=== PATIENT | male | born 1970 | race Caucasian/White ===

== ENCOUNTER 2016-12-08 13:17 | Inpatient (IN) ==
--- NOTE | 2016-12-05 20:40 | Discharge Summary ---
<DaylinDiane L - Last Filed: 12/07/16 21:12> - Discharge Diagnosis (1) Arthritis of left hip Priority: Primary Status: Acute (2) Tobacco use Priority: Secondary Status: Chronic - Discharge Medications Home Medications: Omeprazole [PriLOSEC] 20 mg PO DAILY 06/19/16 [History] Aspirin Enteric Coated [Aspirin EC] 325 mg PO DAILY #21 tablet. 12/07/16 [Rx] OxyCODONE Immed Rel [Roxicodone 5 MG] 5 - 10 mg PO Q6HR PRN #40 tablet 12/07/16 [Rx] Allergies/Adverse Reactions: Allergies codeine Allergy (Verified 12/09/16 20:07) Swelling of Lip/Tongue/Throat Pt states ok with taking Morphine. Oxycodone Allergy (Verified 12/08/16 19:04) Swelling of Lip/Tongue/Throat Primary care physician: PCP NO - Patient Status Disposition: Home, Self-Care Condition: Good - Discharge Instructions Follow Up With: NO,PCP [Primary Care Provider] - - Hospital Course Hospital course: Mr. Arambula is a 46 year old male - Time Spent with Patient Total time spent providing and/or coordinating discharge services: <Dylan Christensen - Last Filed: 12/10/16 06:55> Date of Encounter: 12/10/16 Time of Encounter: 06:55 - Discharge Diagnosis (1) Arthritis of left hip Priority: Primary Status: Acute (2) Tobacco use Priority: Secondary Status: Chronic Primary care physician: PCP NO - Patient Status Functional capacity at discharge: uses cane/walker Overall status at discharge: patient is progressing back to baseline - Hospital Course Hospital course: Mr. Arambula is a 46 year old male The patient had an uneventful postoperative course. They received antibiotics and physical therapy and were discharged in stable condition. There will follow -up in the office in 2 weeks. - Time Spent with Patient Total time spent providing and/or coordinating discharge services:
--- NOTE | 2016-12-08 13:35 | History & Physical Report ---
Date of Encounter: 12/08/16 Time of Encounter: 13:35 24 Hour HP Update - Instructions Instructions: If the History and Physical is less than 30 days old and was completed prior to A.M. admission and or procedure and has NOT been updated on calendar day of procedure please complete this update prior to performing procedure. - Update Patient reports changes in Medical Condition: No Changes in assessment/condition: No Changes in Medication: No Preop tests/diagnostics Reviewed: Yes Surgery Remains Indicated: Yes Consent for Planned Operative Procedure(s) Verified: Yes - Pre-Operative Checklist Preoperative Checklist Indicated: No Prophylactic Antibiotic Ordered: Yes Is VTE Prophylaxis Indicated?: Yes
[2016-12-08] MEDS ORDERED: CeFAZolin Pre 2,000 MG/100 ML 2,000 MG/100 ML BAG IVPB ONE (13:39)
[2016-12-08] MEDS ORDERED: Albuterol 2.5 MG/3 ML NEBULIZER IH ONE (13:46)
[2016-12-08] MEDS: Ringers Solution, Lactated 1,000 ML IVC SCH ×2 (14:01→16:15)
[2016-12-08] MEDS ORDERED: *HR* Propofol 200 MG/20 ML VIAL IVP ONE (14:20)
[2016-12-08] MEDS ORDERED: *HR* Succinylcholine 200 MG/10 ML VIAL IVP ONE (14:20)
[2016-12-08] MEDS ORDERED: Dexamethasone 4 MG/ML VIAL ONE (14:20)
[2016-12-08] MEDS ORDERED: Ondansetron 4 MG/2 ML VIAL ONE (14:20)
[2016-12-08] MEDS ORDERED: Ketorolac 30 MG/ML VIAL ONE (14:20)
[2016-12-08] MEDS ORDERED: *HR* Midazolam HCl 2 MG/2 ML VIAL ONE (14:20)
[2016-12-08] MEDS ORDERED: *HR* Rocuronium Bromide 50 MG/5 ML VIAL ONE (14:20)
[2016-12-08] MEDS ORDERED: Lidocaine -MPF 2% 2 ML VIAL ONE (14:20)
[2016-12-08] MEDS ORDERED: Lidocaine -MPF 4% 5 ML AMPUL ONE (14:20)
[2016-12-08] MEDS ORDERED: *HR* FentaNYL (PF) 100 MCG/2 ML VIAL ONE ×2 (14:20→15:23)
[2016-12-08] MEDS ORDERED: *HR* Promethazine 25 MG/ML VIAL IVP PRN (14:25)
[2016-12-08] MEDS ORDERED: Ondansetron 4 MG/2 ML VIAL IVP ONE (14:25)
[2016-12-08] MEDS ORDERED: Famotidine 20 MG/2 ML VIAL IVP ONE (14:30)
--- NOTE | 2016-12-08 14:32 | Anesthesia Evaluation PreOp ---
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 12/07/16 [Rx] OxyCODONE Immed Rel [Roxicodone 5 MG] 5 - 10 mg PO Q6HR PRN #40 tablet 12/07/16 [Rx] Allergies codeine Allergy (Verified 12/08/16 14:29) Swelling of Lip/Tongue/Throat - Meds/Allergy Pre-op Review Medications Reviewed: Yes Allergies Reviewed: Yes Beta Blockers on Current Med List: No Anesthesia Results - Labs Laboratory Tests 11/25/16 11/25/16 13:45 13:45 Hgb 14.1 Hct 41.7 Plt Count 202 Sodium 138 Potassium 3.9 BUN 11 Creatinine 0.90 Anesthesia Exam O2 Sat Height 1.8 m Height 1.8 m Weight 84.822 kg Weight 84.822 kg O2 Sat by Pulse Oximetry 97 Vital Signs Temp Pulse Resp BP Pulse Ox 98.8 F 75 16 133/89 97 12/08/16 13:35 12/08/16 13:35 12/08/16 13:35 12/08/16 13:35 12/08/16 13:35 Height: 5'11 Weight: 182 lbs NPO (# of Hours): MN Pain Scale: 0 - HEENT Pupil (Motor): Pupils equal, EOMI Mallampati: II Denture Type: Upper: Complete Oral Opening: Greater than 3 - STEWARDESS SUPERVISOR LOC: Oriented STEWARDESS SUPERVISOR Motor: Normal RUE, Normal LUE, Normal RLE, Normal LLE, Normal Face STEWARDESS SUPERVISOR Sensory: Normal: RUE, LUE, RLE, LLE, Face - Cardiac Rhythm: Regular Murmur: None JVD: No Carotid Bruit: No - Pulmonary Breath Sounds: bilateral Clear Respiratory Effort: Symmetrical Anesthesia Assess/Plan ASA Score: 2 Modified Esparto Scale for Level of Consciousness: Cooperative, oriented, and tranquil Anesthetic Plan: General Monitoring Plan: Standard Monitors Recovery Plan: PACU (Discussed GA, agrees to proceed)
[2016-12-08] MEDS ORDERED: *HR* HYDROmorphone 2 MG/ML SYRINGE ONE ×2 (15:48→16:01)
--- NOTE | 2016-12-08 16:19 | Orthopedic Operative Note ---
Date of procedure: 12/08/16 Pre-op diagnosis: Left hip arthritis Post-op diagnosis: same Procedure: Procedure: Left Total Hip Replacment Estimated blood loss: 200 cc Hardware: Biomet DM Cup: 56 G7 fin cup Femoral size 12 echo full profile lateralized stem Head: 3 head with Sheree Procedural Notes: He should noted to have grade 4 arthritic changes femoral head acetabular socket Operative procedure: The patient was brought to the operating room and placed on the operating room table. After general anesthesia was administered the patient was placed in the lateral decubitus position with the operative leg up. All pressure points were padded appropriately and the head was stabilized in the neutral position. The operative extremity was prepped and draped in the sterile surgical fashion patient received IV antibiotic prior to skin incision. A standard posterior approach is made to the operative hip, the incision was made through the skin and subcutaneous tissue hemostasis was obtained with Bovie cautery. Using careful sharp dissection the fascia was identified and incised exposing the external rotators. The external rotators were released off the greater trochanter and tagged with #2 FiberWire suture. The capsule was T'd open and the hip was brought into internal rotation. Patient noted to have grade 4 arthritic changes femoral head. The femoral neck cut was made at the appropriate level. An anterior capsulotomy was performed for the anterior retractor. Soft tissues removed from the acetabulum. Patient noted to have grade 4 arthritic changes acetabulum. Acetabulum was first reamed medially, and then reamed in 15 degrees of anteversion and 45 degrees off the horizontal. It was reamed up to the appropriate size 56 The appropriate-sized 56 acetabular cup was impacted in place in 15 degrees of anteversion and 45 degrees off the horizontal. This had good fit and fixation. The hip was brought back in to internal rotation and prepared with the box strapper followed by the canal finder followed by broaching process in 20 degrees anteversion. It was broached up to the appropriate size 12. The femoral implant was impacted in place in 20 degrees of anteversion. Trial reduction found the hip to be stable with +3 head and Sheree. The trials were removed and the real implants were impacted in place. The hip was reduced, patient had apparent equal leg lengths. The hip had excellent stability with forward flexion to 90 degrees adduction of 30 degrees and internal rotation of 60 degrees. The hip had no shuck. The hips after 2 minutes with a Betadine saline solution. It was irrigated out with 2 L of pulse irrigation. The external rotators were reattached to drill holes in the greater trochanter. Fascia was closed with a running #2 PDS suture. The deep tissue was irrigated and closed deep with #1 PDS suture superficially with 0 PDS suture and skin was closed with Dermabond and skin ricarda. The patient was placed in a sterile dressing and abduction pillow. The patient was extubated and transferred to the recovery room in stable condition. Anesthesia: MARITZA Surgeon: Dylan Christensen Air Launch Weapons Technician: Diane Mao Condition: stable Disposition: PACU
[2016-12-08] MEDS ORDERED: *HR* HYDROmorphone (PF) 1 MG/ML SYRINGE IVP PRN ×2 (16:39→17:37)
[2016-12-08] MEDS: *HR* HYDROmorphone (PF) 1 MG/ML SYRINGE IVP PRN ×4 (16:55→17:24)
[2016-12-08 17:04] LABS: Hematocrit 40.6 % (37.5-50.1); Hemoglobin 13.6 g/dL (12.9-16.9)
[2016-12-08] MEDS ORDERED: Ringers Solution, Lactated 1,000 ML IVC SCH (17:37)
[2016-12-08] MEDS ORDERED: Sennosides 8.6 MG TABLET PO PRN (17:37)
[2016-12-08] MEDS ORDERED: *HR* OxyCODONE Immed Rel 5 MG TABLET PO PRN ×2 (17:37)
[2016-12-08] MEDS ORDERED: Temazepam 15 MG CAPSULE PO PRN (17:37)
[2016-12-08] MEDS ORDERED: ceFAZolin 2,000 MG in D5% in Water 100 ML IVPB SCH (17:37)
[2016-12-08] MEDS ORDERED: Ondansetron 4 MG/2 ML VIAL IVP PRN (17:37)
[2016-12-08] MEDS ORDERED: Acetaminophen 325 MG TABLET PO PRN (17:37)
[2016-12-08] MEDS ORDERED: Naloxone 0.4 MG/ML INJ IVP PRN (17:37)
[2016-12-08] MEDS ORDERED: MOM Conc 10 ML UD.LIQ PO PRN (17:37)
--- NOTE | 2016-12-08 17:43 | Anesthesia Evaluation Post Op ---
Date of Encounter: 12/08/16 Time of Encounter: 17:40 - Vital Signs Vital Signs: Vital Signs/O2 Sat, Most Current Temp Pulse Resp BP Pulse Ox 98.1 F 76 16 136/91 95 12/08/16 17:40 12/08/16 17:40 12/08/16 17:40 12/08/16 17:40 12/08/16 17:40 - Lungs Lungs: Clear Ascult./Percussion - Airway Airway: Non-obstructed - Cardiovascular Regular Rate - Mental Status Mental Status: Alert & Oriented, Answers Appropriately - Pain Pain Scale: 5 Pain Scale used: Numeric (1 - 10) - Nausea Vomiting Nausea Vomiting: Not Present - Hydration Hydration: Ice chips, Has not voided - Discharge PostOp Status: Transfer Patient to floor
[2016-12-08] MEDS ORDERED: *HR* Enoxaparin 30 MG/0.3 ML SYRINGE SQ SCH (18:00)
[2016-12-08] MEDS ORDERED: *HR* HYDROcodone/Acet 5/325 mg TABLET PO PRN (18:59)
[2016-12-08] MEDS: Ascorbic Acid 500 MG TABLET PO SCH (20:00)
[2016-12-08] MEDS: Nicotine 21 MG PATCH.TD24 TD SCH (20:00)
[2016-12-08] MEDS: *HR* Enoxaparin 30 MG/0.3 ML SYRINGE SQ SCH (20:01)
[2016-12-08] MEDS: ceFAZolin 2,000 MG in D5% in Water 100 ML IVPB SCH (22:11)
[2016-12-08] MEDS: *HR* HYDROcodone/Acet 5/325 mg TABLET PO PRN (22:11)
[2016-12-09] MEDS: *HR* HYDROcodone/Acet 5/325 mg TABLET PO PRN ×4 (02:26→22:11)
[2016-12-09] MEDS: *HR* Morphine 2 MG/ML SYRINGE IVP PRN ×3 (03:58→20:24)
[2016-12-09] MEDS: ceFAZolin 2,000 MG in D5% in Water 100 ML IVPB SCH (06:00)
[2016-12-09] MEDS: *HR* Enoxaparin 30 MG/0.3 ML SYRINGE SQ SCH ×2 (06:00→18:08)
[2016-12-09 06:42] LABS: Hematocrit 35.3 % (37.5-50.1); Hemoglobin 12.5 g/dL (12.9-16.9)
--- NOTE | 2016-12-09 06:42 | Orthopedics Progress Note ---
Date of Encounter: 12/09/16 Time of Encounter: 06:42 - Assessment and Plan (1) Arthritis of left hip Current Visit: Yes Status: Acute (2) Tobacco use Current Visit: Yes Status: Chronic Subjective Interval history: pt doing well no complaints afvss operative extremity NVI dressing c/d/i calves nt continue postop care Hb 13 Objective Vital signs: Vital Signs Temp Pulse Resp BP Pulse Ox 12/09/16 04:00 98.1 F 88 18 108/70 97 12/09/16 00:18 98.7 F 86 15 111/71 94 L 12/08/16 21:03 98 F 90 16 106/70 95 12/08/16 20:06 97.6 F 86 16 110/74 97 12/08/16 19:19 97.5 F L 82 18 126/82 93 L 12/08/16 17:56 98.2 F 81 18 126/85 94 L 12/08/16 17:40 98.1 F 76 16 136/91 95 12/08/16 17:30 83 16 140/91 95 12/08/16 17:20 89 16 144/92 94 L 12/08/16 17:10 98.2 F 88 16 143/81 96 12/08/16 17:00 78 16 147/104 97 12/08/16 16:50 86 16 146/102 94 L 12/08/16 16:40 98.1 F 94 12 127/84 94 L 12/08/16 13:35 98.8 F 75 16 133/89 97 Intake and Output 12/08/16 12/08/16 12/09/16 15:59 23:59 07:59 Intake Total 100 / 100 1840 / 1840 100 / 100 Output Total 200 / 200 Balance 100 / 100 1640 / 1640 100 / 100 Intake: IV Fluids 100 / 100 1600 / 1600 100 / 100 Lactated Ringers 1,000 ML 1600 / 1600 @ 25 mls/hr IVC .Q24H HERNANDO Rx#:[id number] Ancef 2,000 MG In 100 / 100 Dextrose 5% 100 ML @ 200 mls/hr IVPB Q8H HERNANDO Rx#: [id number] Ancef Premix 2,000 MG/100 100 / 100 ML 2,000 mg In 100 ml @ 200 mls/hr IVPB PREOP ONE Rx#:[id number] Oral 240 / 240 Output: Estimated Blood Loss 200 / 200 Other: # Voids 1 Weight 84.822 kg - Labs CBC & BMP: 12/08/16 16:54 - VTE Documentation of Mechanical Device: Venous foot pump, device Consult Discharge Plan - Plan Referrals: NO,PCP [Primary Care Provider] -
[2016-12-09 07:02] LABS: BUN/Creatinine Ratio 18 (6-26); Blood Urea Nitrogen 15 mg/dL (8-26); Carbon Dioxide 20 mEq/L (19-29); Chloride 106 mEq/L (98-109); Glucose 140 mg/dL (70-99); Osmolality,Calculated 289 (280-300); Sodium 138 mEq/L (136-145); eGFR For African Americans > 60 (> 60); eGFR For Non-African Americans > 60 (> 60)
[2016-12-09] MEDS ORDERED: Lidocaine -MPF 2% 2 ML VIAL ONE (08:32)
[2016-12-09] MEDS ORDERED: *HR* Rocuronium Bromide 50 MG/5 ML VIAL ONE (08:32)
[2016-12-09] MEDS ORDERED: *HR* Propofol 200 MG/20 ML VIAL IVP ONE (08:32)
[2016-12-09] MEDS ORDERED: Ondansetron 4 MG/2 ML VIAL ONE (08:32)
[2016-12-09] MEDS ORDERED: *HR* FentaNYL (PF) 100 MCG/2 ML VIAL ONE (08:32)
[2016-12-09] MEDS ORDERED: *HR* Midazolam HCl 2 MG/2 ML VIAL ONE (08:32)
[2016-12-09] MEDS ORDERED: Dexamethasone 4 MG/ML VIAL ONE (08:32)
[2016-12-09] MEDS: Ascorbic Acid 500 MG TABLET PO SCH ×2 (08:35→18:08)
[2016-12-09] MEDS: Multivit/Ca/Min/Fe/FA 1 TAB TABLET PO SCH (08:35)
[2016-12-09] MEDS: Nicotine 21 MG PATCH.TD24 TD SCH (08:36)
[2016-12-09] MEDS: Gabapentin 300 MG CAPSULE PO SCH ×2 (12:54→21:27)
[2016-12-09] MEDS: Acetaminophen IV 1,000 MG/100 ML INFUS..BTL IVPB PRN ×2 (12:56→22:30)
[2016-12-09] MEDS ORDERED: *HR* Morphine 2 MG/ML SYRINGE IVP PRN (14:22)
[2016-12-09] MEDS: Ketorolac 30 MG/ML VIAL IVP PRN ×2 (14:28→20:43)
[2016-12-10] MEDS: *HR* HYDROcodone/Acet 5/325 mg TABLET PO PRN ×2 (02:29→10:51)
[2016-12-10] MEDS: *HR* Morphine 2 MG/ML SYRINGE IVP PRN (05:35)
[2016-12-10] MEDS: *HR* Enoxaparin 30 MG/0.3 ML SYRINGE SQ SCH (05:36)
[2016-12-10 06:34] VITALS: BP 123/79
--- NOTE | 2016-12-10 06:56 | Orthopedics Progress Note ---
Date of Encounter: 12/10/16 Time of Encounter: 06:55 - Assessment and Plan (1) Arthritis of left hip Current Visit: Yes Status: Acute (2) Tobacco use Current Visit: Yes Status: Chronic Subjective Interval history: pt doing well no complaints afvss operative extremity NVI dressing c/d/i calves nt continue postop care Discharged today Objective Vital signs: Vital Signs Temp Pulse Resp BP Pulse Ox 12/10/16 06:32 99.2 F 90 16 123/79 94 L 12/09/16 23:57 99.0 F 98 16 127/78 96 12/09/16 20:00 99.0 F 92 147 120/75 93 L 12/09/16 15:08 99.3 F 94 14 136/83 95 12/09/16 12:18 124/81 12/09/16 10:46 98.0 F 86 16 94 L 12/09/16 10:06 104/63 Intake and Output 12/09/16 12/09/16 12/10/16 15:59 23:59 07:59 Intake Total 240 / 240 1700 / 1700 450 / 450 Output Total 450 / 450 825 / 825 Balance 240 / 240 1250 / 1250 -375 / -375 Intake: IV Fluids 1100 / 1100 100 / 100 Lactated Ringers 1,000 ML 1000 / 1000 @ 75 mls/hr IVC .[id number] HERNANDO Rx#:[id number] Ofirmev 1,000 mg In 100 100 / 100 100 / 100 ml @ 400 mls/hr IVPB Q6HR PRN Rx#:[id number] Oral 240 / 240 600 / 600 350 / 350 Output: Urine 450 / 450 825 / 825 Other: Meal Breakfast Percent of Meal Consumed 10% - Labs CBC & BMP: 12/09/16 06:09 12/09/16 06:09 Labs: Abnormal lab results Hgb 12.5 g/dL (12.9-16.9) L 12/09/16 06:09 Hct 35.3 % (37.5-50.1) L 12/09/16 06:09 Glucose 140 mg/dL (70-99) H 12/09/16 06:09 Calcium 8.0 mg/dL (8.6-10.8) L 12/09/16 06:09 - VTE Documentation of Mechanical Device: Venous foot pump, device Consult Discharge Plan - Plan Referrals: NO,PCP [Primary Care Provider] -
[2016-12-10 06:57] LABS: Hematocrit 35.4 % (37.5-50.1); Hemoglobin 11.9 g/dL (12.9-16.9)
[2016-12-10 07:15] LABS: BUN/Creatinine Ratio 13 (6-26); Blood Urea Nitrogen 10 mg/dL (8-26); Carbon Dioxide 25 mEq/L (19-29); Chloride 108 mEq/L (98-109); Glucose 114 mg/dL (70-99); Osmolality,Calculated 290 (280-300); Potassium 4.1 mEq/L (3.5-4.5); Sodium 140 mEq/L (136-145); eGFR For African Americans > 60 (> 60); eGFR For Non-African Americans > 60 (> 60)
[2016-12-10 07:29] LABS: Calcium 8.6 mg/dL (8.6-10.8)
[2016-12-10] MEDS: Acetaminophen IV 1,000 MG/100 ML INFUS..BTL IVPB PRN (07:56)
[2016-12-10] MEDS: Ascorbic Acid 500 MG TABLET PO SCH (07:57)
[2016-12-10] MEDS: Multivit/Ca/Min/Fe/FA 1 TAB TABLET PO SCH (07:57)
[2016-12-10] MEDS: Nicotine 21 MG PATCH.TD24 TD SCH (07:57)
[2016-12-10] MEDS: Gabapentin 300 MG CAPSULE PO SCH (07:58)
--- NOTE | 2016-12-10 10:23 | Discharge Summary ---
Date of Encounter: 12/29/16 Time of Encounter: 08:02 - Discharge Diagnosis (1) Arthritis of left hip Priority: Primary Status: Acute (2) Tobacco use Priority: Secondary Status: Chronic - Discharge Medications Prescriptions: HYDROcodone/Acet 5/325 mg [[place] 5-325 mg] 1 - 2 tab PO Q6H PRN #40 tab PRN Reason: Pain Home Medications: Omeprazole [PriLOSEC] 20 mg PO DAILY 06/19/16 [History] Aspirin Enteric Coated [Aspirin EC] 325 mg PO DAILY #21 tablet. 12/07/16 [Rx] OxyCODONE Immed Rel [Roxicodone 5 MG] 5 - 10 mg PO Q6HR PRN #40 tablet 12/07/16 [Rx] HYDROcodone/Acet 5/325 mg [[place] 5-325 mg] 1 - 2 tab PO Q6H PRN #40 tab [Rx] Allergies/Adverse Reactions: Allergies codeine Allergy (Verified 12/09/16 20:07) Swelling of Lip/Tongue/Throat Pt states ok with taking Morphine. Oxycodone Allergy (Verified 12/08/16 19:04) Swelling of Lip/Tongue/Throat Labs on day of discharge: Labs from last 24 hours 12/10/16 12/10/16 06:21 06:21 Hgb 11.9 L Hct 35.4 L Sodium 140 Potassium 4.1 Chloride 108 Carbon Dioxide 25 BUN 10 Creatinine 0.80 Est GFR ( Amer) > 60 Est GFR (Non-Af Amer) > 60 BUN/Creatinine Ratio 13 Glucose 114 H Calculated Osmolality 290 Calcium 8.6 - Impressions ITS Impressions Hip X-Ray 12/08/16 00:01 IMPRESSION: No acute complication status post left hip arthroplasty. D/ / 12/08/2016 17:27:41 Alex Saunders MD / abigail Interpreting Provider: Alex Saunders MD Date of admission: 12/08/16 17:37 Primary care physician: PCP NO Consults: 12/08/16 17:37 Consult to Nurse Navigator [CONS] Routine Comment: ortho navigator Consult to Occupational Therapy [CONS] Routine Comment: Evaluate, develop and implement POC Consult to Physical Therapy [CONS] Routine Comment: Evaluate, develop and implement POC Consult to Combine Driver [CONS] Routine Reason for SW Consult: post op joint replacement RT Post Op Consult [CONS] Routine - Patient Status Disposition: Home, Self-Care Condition: Good Functional capacity at discharge: uses cane/walker Overall status at discharge: patient is back to baseline - Discharge Instructions Follow Up With: Dylan Christensen MD [Partnered Physician] - 01/06/17 9:30 am Diane Mao PAC [Physician Helicopter Repairer] - 12/18/16 9:15 am [facility] [Primary Care Provider] - Additional Instructions: Discharge Instructions: Total Hip Replacement Please call [facility] ([phone]), your Primary Care Physician, or report to the Emergency Room if you have any of the following symptoms: Nausea, vomiting, fever greater that 101.5, swelling, chest pain, shortness of breath, increased pain/redness/drainage/odor for your incision site, numbness/ tingling, or any other concerning symptoms. ACTIVITY:Weight-bearing as tolerated for 8 weeks with hip dislocation precautions that physical therapy taught you. You may progress as tolerated under the guidance of your physical therapist. You do not need to sleep with a pillow between your legs. You can also seep on the operative side or on your stomach. MEDICATIONS: Upon discharge resume your home medications. Take all the medications as prescribed. Take a stool softener if taking narcotic pain medications. Stool softeners are only effective if you drink enough fluids. Drink 6-8 glass of water or fluids a day, unless this is not allowed for another health problem. Despite using stool softeners, if you haven't had a bowel movement in 3 days, please switch to a gentle laxative. Gentle laxatives are sold over the counter. You should have a bowel movement within 24 hours, if not call the office. You will be discharged from the hospital with a prescription for pain medication. You are encouraged to decrease the use of narcotic pain medication as tolerated. Should you require a refill, please call the office. [facility] prescribes narcotic pain medication for only 4-6 weeks after surgery. If you require pain medication beyond this time periord, you may be referred to your Primary Care Physician or to the Pain Clinic for further evaluation. Plan ahead for refills on pain medication as many narcotics either need to be picked up at the office or mailed. It is best to call 48-72 hours in advance of needing a prescription refill so you don't run out of medication. To help control the post-operative pain, you may take NSAIDs (Aleve,Advil, Motrin, ibuprofen, naprosyn) or Tylenol as prescribed on the bottle in addition to the pain medication. ANTICOAGULATION (blood thinners): Continue your Aspirin, Lovenox or Coumadin as prescribed to help prevent a blood clot in the leg or in the lungs. As long as your incision remains dry and you tolerate the NSAIDs (Aleve, Advil, Motrin, ibuprofen, naprosyn), it is OK to use the NSAIDS while you are taking your anticoagulation medication. Should your incision start to drain, stop the NSAID and contact our office. Common symptoms of blood clot in the legs include: localized pain, swelling, calf tenderness, redness or discoloration of the skin. Blood clot in the lung symptoms include: shortness of breath, rapid pulse, sweating, and chest pain that worsens with deep breathing, coughing up blood, lightheadedness, feelings of anxiety. If you experience any of these symptoms notify your physician immediately, go to the emergency room, or if having trouble breathing, call 911. WOUND CARE: Leave the dressing on for 7 days. You may change the dressing if it is saturated greater than 50%. You can shower but not a tub bath or submerge your incision in water. Wash your hands with antibacterial soap, rinse and dry prior to any wound care. If you have ricarda the visiting nurse or rehab facility can remove the stapes 10-14 days after surgery and place steri-strips across the wound. Leave the steri-strips in place until they fall off on their won. You may let water from the shower run on top of the steri-stirips. If you do not have a visiting nurse or rehab facility, you will need to return to the office at 10-14 days for the ricarda to be removed. FOLLOW-UP: Please follow up with your surgeon in the orthopedic clinic in 6 weeks from the day of surgery. If you have ricarda that need to be removed, you will need to come back to the office in 10-14 days from the day of surgery. - Hospital Course Hospital course: Mr. Arambula is a 46 year old male - Time Spent with Patient Total time spent providing and/or coordinating discharge services: - VTE Documentation of Mechanical Device: Venous foot pump, device
== END 2016-12-10 12:55 | disposition home or self-care (01) | DRG 301 ==
LOC: SAMDAY 13:17 → 3NENU 17:37
PROVIDERS: ADMIT Orthopaedic Surgery; ATTEND Orthopaedic Surgery